=== PATIENT | male | born 2005 | race Native Hawaiian/Other Pacific Islander ===

== ENCOUNTER 2024-03-28 17:26 | Emergency (ER) | payer OTHER, SELFPAY ==
--- NOTE | 2024-03-28 17:35 | ED.SKABFB ---
HPI - Skin/Abscess/Foreign Bdy General Chief complaint: Wound/Laceration Stated complaint: Possible Stitches Time Seen by Provider: 03/28/24 17:36 Source: patient Mode of arrival: ambulatory Limitations: no limitations History of Present Illness HPI narrative: 19-year-old male presents with laceration to chin. Patient fell last night around 9:00 p.m. and hit chin on the floor. Patient is a student was at class all day. Was not able to be seated till this afternoon. Bleeding controlled on arrival. All systems reviewed and negative except as noted above. Related Data Home Medications ?Medication ?Instructions ?Recorded ?Confirmed ?Last Taken ?Type dextroamphetamine-amphetamine ER 10 mg PO DAILY 11/08/23 03/28/24 Unknown History 10 mg 24hr capsule,extend release (Adderall XR) Allergies Allergy/AdvReac Type Severity Reaction Status Date / Time No Known Allergies Allergy Verified 03/28/24 17:36 Review of Systems Review of Systems: CONSTITUTIONAL: Denies fever, chills, or sweats. EYES: Denies visual changes, redness, or discharge. ENT: Denies rhinorrhea, congestion, sore throat, or otalgia. CARDIOVASCULAR: Denies chest pain, palpitations, or edema. RESPIRATORY: Denies cough or dyspnea. GASTROINTESTINAL: Denies abdominal pain, nausea, vomiting, or diarrhea. GENITOURINARY: Denies dysuria or hematuria. SKIN: Denies rash or itching. Reports laceration to chin. MUSCULOSKELETAL: Denies back pain, joint pain, or myalgia. NEUROLOGIC: Denies headache, numbness, or weakness. PSYCHIATRIC: Denies anxiety or depression. All other systems reviewed are negative, except as documented in HPI. FOR[facility]LY [facility], [facility] Social History Social History (Updated 11/08/23 @ 09:47 by Patty Doherty [facility]) Smoking status: Never smoker Alcohol intake: current Substance use: never Do You Feel Safe in your Home?: Yes Lack of Transportation: No Lack of Food: Never True Current Housing: I Have Housing Concerned About Future Housing: No Difficulty Paying Gas/Electric Bills: No Difficulty Paying for Meds: No Currently Unemployed: YES Education: High School Diploma/GED Difficulty w/ Childcare or Family Care: No Living arrangements: with roommate(s) Occupation/Education: unemployed Gender identity (if verbalized by the patient): Male Sexual Orientation (if Verbalized by the Patient): Straight or Heterosexual Spiritual care concerns: No Agree to blood products: Yes Comments At time of signature, agree with nursing past medical, surgical, social and family history. There is no relevant family history pertinent to the presenting complaint. Exam Narrative: GENERAL: This is a well-nourished, well-developed patient, in no apparent distress. HEAD: normocephalic, atraumatic. EYES: PERRL. Sclera clear/white. Vision is grossly intact. EARS: External ears normal NOSE: External nose normal NECK: Neck supple, non-tender without lymphadenopathy, masses or thyromegaly. CARDIOVASCULAR: Regular rate and rhythm without murmurs, gallops, or rubs. RESPIRATORY: Clear to auscultation. Breath sounds equal bilaterally. No wheezes, rales, or rhonchi. SKIN: warm, Dry, with no suspicious lesions or rash, good texture and turgor. 1 cm laceration to chin, gaping by 0.5 cm, some swelling to wound edges. NEURO: awake, alert, and oriented to person, place and time. There were no obvious focal neurologic abnormalities. EXTREMITIES: No joint tenderness, effusion, or edema noted. Course Course Level of Care: Express Care Visit Vital Signs Vital signs: Vital Signs Temperature 37.2 C 03/28/24 17:37 Pulse Rate 62 03/28/24 17:37 Respiratory Rate 16 03/28/24 17:37 Blood Pressure 126/65 03/28/24 17:37 Pulse Oximetry 100 03/28/24 17:37 Temperature 37.2 C 03/28/24 17:37 Pulse Rate 62 03/28/24 17:37 Respiratory Rate 16 03/28/24 17:37 Blood Pressure 126/65 03/28/24 17:37 Pulse Oximetry 100 03/28/24 17:37 Reviewed Procedures Laceration Laceration 1: Date: 03/28/24 Site: face (Chin) Size (cm): 1 Description: linear Depth: simple, single layer Local Anesthetic: lidocaine 1% Amount of anesthesia used (mL): 1 Pre-repair: wound explored and irrigated ====== Skin Level ====== Skin layer closed with: prolene Size (cm): 5-0 Number of sutures: 5 Technique: simple, interrupted ====== Subcutaneous Layer ====== ====== Muscle Layer ====== ====== Tendon Layer ====== MDM - Skin/Abscess/Foreign Bdy MDM Narrative Medical decision making narrative: 5 sutures placed to chin. Patient placed on cephalexin for antibiotic prevention due to delay in wound closure. Please be advised this is a medical document. It is intended for [id number] communication. It is written in medical language and may contain unfamiliar abbreviations or verbiage. Medical documents are intended to carry relevant information, facts as evident, and the clinical opinion of the practitioner at the time of the encounter. This report may have been done utilizing a voice recognition system. Attempts have been made to correct errors. However, there may be uncorrected grammatical, spelling, and recognition errors present. The file time of this note does not necessarily represent the time of service. Discharge Plan Discharge Clinical Impression: Chin laceration Patient Disposition: Home, Self-Care Condition: Stable Instructions: Antibiotic Form, Facial Laceration (ED) Additional Instructions: Keep sutures clean and dry. Do not pull or pick at sutures. May apply Aquaphor or Vaseline twice a day. Follow up in 5-7 days for suture removal. Take antibiotic as prescribed to prevent wound infection. Take Tylenol every 6-8 hours as needed for pain. If you have signs of infection such as redness, swelling, drainage, increasing pain follow-up with your primary care physician. Patient Language: Korean Prescriptions: New cephalexin 500 mg capsule 500 mg PO BID 7 Days Qty: 14 0RF No Action dextroamphetamine-amphetamine [Adderall XR] 10 mg capsule,extended release 24hr 10 mg PO DAILY Follow-up/Referrals: Riddhi Ruano APRN [Primary Care Provider] - Time of Disposition: 18:04
[2024-03-28 17:37] VITALS: BP 126/65; PULSE 62; RESP 16; TEMP 37.2; O2SAT 100
== END 2024-03-28 18:15 | disposition home or self-care (01) ==
PROVIDERS: Emergency Provider Nurse Practitioner Family; PCP Nurse Practitioner Family
DX: S01.81XA Laceration without foreign body of other part of head, initial encounter (principal); W19.XXXA Unspecified fall, initial encounter
CPT/HCPCS: 12011; 99213; G0463; J2003

== ENCOUNTER 2024-04-04 19:32 | Emergency (ER) | payer OTHER, SELFPAY ==
--- NOTE | 2024-04-04 19:44 | ED_ITS ---
HPI - Wound/Laceration General Chief Complaint: Wound/Laceration Stated Complaint: SUTURE REMOVAL Time Seen by Provider: 04/04/24 19:44 Source: patient Mode of arrival: ambulatory Limitations: no limitations History of Present Illness HPI narrative: 19-year-old male here for suture removal. Patient had sutures placed to chin after falling and hitting concrete. All systems reviewed and negative except as noted above. Related Data Home Medications ?Medication ?Instructions ?Recorded ?Confirmed ?Last Taken ?Type dextroamphetamine-amphetamine ER 10 mg PO DAILY 11/08/23 04/04/24 Unknown History 10 mg 24hr capsule,extend release (Adderall XR) Allergies Allergy/AdvReac Type Severity Reaction Status Date / Time No Known Allergies Allergy Verified 04/04/24 19:43 Review of Systems Review of Systems: CONSTITUTIONAL: Denies fever, chills, or sweats. EYES: Denies visual changes, redness, or discharge. ENT: Denies rhinorrhea, congestion, sore throat, or otalgia. CARDIOVASCULAR: Denies chest pain, palpitations, or edema. RESPIRATORY: Denies cough or dyspnea. GASTROINTESTINAL: Denies abdominal pain, nausea, vomiting, or diarrhea. GENITOURINARY: Denies dysuria or hematuria. SKIN: Denies rash or itching. Here for suture removal. MUSCULOSKELETAL: Denies back pain, joint pain, or myalgia. NEUROLOGIC: Denies headache, numbness, or weakness. PSYCHIATRIC: Denies anxiety or depression. All other systems reviewed are negative, except as documented in HPI. [facility] Social History Social History (Updated 11/08/23 @ 09:47 by Patty Doherty [facility] [address]) Smoking status: Never smoker Alcohol intake: current Substance use: never Do You Feel Safe in your Home?: Yes Lack of Transportation: No Lack of Food: Never True Current Housing: I Have Housing Concerned About Future Housing: No Difficulty Paying Gas/Electric Bills: No Difficulty Paying for Meds: No Currently Unemployed: YES Education: High School Diploma/GED Difficulty w/ Childcare or Family Care: No Living arrangements: with roommate(s) Occupation/Education: unemployed Gender identity (if verbalized by the patient): Male Sexual Orientation (if Verbalized by the Patient): Straight or Heterosexual Spiritual care concerns: No Agree to blood products: Yes Comments At time of signature, agree with nursing past medical, surgical, social and family history. There is no relevant family history pertinent to the presenting complaint. Exam Narrative: GENERAL: This is a well-nourished, well-developed patient, in no apparent distress. HEAD: normocephalic, atraumatic. EYES: PERRL. Sclera clear/white. Vision is grossly intact. EARS: External ears normal NOSE: External nose normal NECK: Neck supple, non-tender without lymphadenopathy, masses or thyromegaly. CARDIOVASCULAR: Regular rate and rhythm without murmurs, gallops, or rubs. RESPIRATORY: Clear to auscultation. Breath sounds equal bilaterally. No wheezes, rales, or rhonchi. SKIN: warm, Dry,with no suspicious lesions or rash, good texture and turgor. Healing laceration to chin with [address] Mild erythema and swelling. No drainage. No wound dehiscence. NEURO: awake, alert, and oriented to person, place and time. There were no obvious focal neurologic abnormalities. EXTREMITIES: No joint tenderness, effusion, or edema noted. Course Course Level of Care: Express Care Visit Vital Signs Vital signs: Vital Signs Temperature 37.1 C 04/04/24 19:50 Pulse Rate 74 04/04/24 19:50 Respiratory Rate 16 04/04/24 19:50 Blood Pressure 123/76 04/04/24 19:50 Pulse Oximetry 100 04/04/24 19:50 Temperature 37.1 C 04/04/24 19:50 Pulse Rate 74 04/04/24 19:50 Respiratory Rate 16 04/04/24 19:50 Blood Pressure 123/76 04/04/24 19:50 Pulse Oximetry 100 04/04/24 19:50 Reviewed Procedures Other Procedure Procedure 1: Other Procedure: 5 sutures removed per with suture removal kit. No wound dehiscence after suture removal. Patient tolerated well. MDM - Wound/Laceration MDM Narrative Medical decision making narrative: Will prescribe Bactroban ointment due to mild erythema and swelling. No drainage. Patient states has been scratching at lee area due to itching, unable to shave from laceration. Could have caused infection. Patient well- appearing, nontoxic. Please be advised this is a medical document. It is intended for ovly-sy-zven communication. It is written in medical language and may contain unfamiliar abbreviations or verbiage. Medical documents are intended to carry relevant information, facts as evident, and the clinical opinion of the practitioner at the time of the encounter. This report may have been done utilizing a voice recognition system. Attempts have been made to correct errors. However, there may be uncorrected grammatical, spelling, and recognition errors present. The file time of this note does not necessarily represent the time of service. Differential Diagnosis Differential diagnosis: Likely laceration Discharge Plan Discharge Clinical Impression: Encounter for removal of sutures Patient Disposition: Home, Self-Care Condition: Stable Instructions: Antibiotic Form, Stitches Removal (ED) Additional Instructions: Sutures removed from laceration today. There is some mild redness and swelling to wound. Apply antibiotic ointment twice a day for 7 days. After completing antibiotic ointment begin applying Vaseline twice a day to reduce scarring. Follow-up with your primary care physician as needed. Patient Language: Slovak Prescriptions: New mupirocin [Centany] 2 % ointment 1 applic topical BID 7 Days Qty: 15 0RF No Action cephalexin 500 mg capsule 500 mg PO BID 7 Days Qty: 14 0RF dextroamphetamine-amphetamine [Adderall XR] 10 mg capsule,extended release 24hr 10 mg PO DAILY Follow-up/Referrals: PHYSICIAN,[employer] [Primary Care Provider] - Time of Disposition: 19:49
[2024-04-04 19:50] VITALS: BP 123/76; PULSE 74; RESP 16; TEMP 37.1; O2SAT 100
== END 2024-04-04 19:54 | disposition home or self-care (01) ==
PROVIDERS: Emergency Provider Nurse Practitioner Family
DX: Z48.02 Encounter for removal of sutures (principal)
CPT/HCPCS: 99213; G0463